=== PATIENT | female | born 1930 | race Caucasian/White ===

== ENCOUNTER → 2016-11-16 | Outpatient (CLI) | payer MEDICARE, OTHER ==
[~2016-11-16] MED LIST: ASCO100072 PO; ATOR20TA9 PO; ENOX40SY4 SQ; ESOM20CA PO; FOSF3PAC PO; GABA300C10 PO; HYDR-3241 PO; HYDR-882 PO; LEVO112T4 PO; MEMA5TAB PO; METH1TAB PO; METH500T97 PO; METR500T PO; NAPR1TAB21 PO; PRIM50TA PO; PROP40TA PO; TOPI-33 PO; TRAM-28 PO
== END | disposition home or self-care (01) ==
LOC: CFH 14:16
PROVIDERS: ATTEND Genetic Counselor, MS
DX: Z13.820 Encounter for screening for osteoporosis (principal); M81.0 Age-related osteoporosis without current pathological fracture
CPT/HCPCS: 77080